=== PATIENT | female | born 1950 | race Hispanic/Latino ===

== ENCOUNTER → 2018-04-09 | Outpatient (CLI) | payer OTHER | END | disposition home or self-care (01) | LOC: RAH 06:58 | PROVIDERS: ATTEND Family Medicine | DX: M77.31 Calcaneal spur, right foot (principal); M25.461 Effusion, right knee | CPT/HCPCS: 73721 ==

== ENCOUNTER 2019-01-07 09:29 | Day surgery (SDC) | payer OTHER ==
[~2019-01-07] VITALS: Ht 157.5 cm; Wt 56.2 kg
[~2019-01-07 09:29] MED LIST: AEC81 PO; ALEN70TA10 PO; ATOR40TA71 PO; CHOL500050 PO; IBUP-2070 PO; ICOS1CAP PO; METF-444 PO; RAMI5CAP66 PO; SITA100T12 PO; SODIUM CHLORIDE 0.9% 1000ML 1,000 ML IV ONE
[2019-01-07 10:16] VITALS: BP 161/80
[2019-01-07] MEDS ORDERED: PROPOFOL 10 MG/ML 20ML VIAL IV ONE (11:04)
[2019-01-07 11:25] VITALS: BP 130/66
[2019-01-07 11:31] VITALS: BP 142/71
[2019-01-07 11:35] VITALS: BP 150/68
[2019-01-07 11:40] VITALS: BP_SYST 76
[2019-01-07 11:50] VITALS: BP 147/75
== END 2019-01-07 12:05 | disposition home or self-care (01) ==
LOC: DAH 09:29 → SUH 09:29
PROVIDERS: ATTEND Internal Medicine Gastroenterology
DX: R10.13 Epigastric pain (principal); K29.40 Chronic atrophic gastritis without bleeding; I10 Essential (primary) hypertension; E11.9 Type 2 diabetes mellitus without complications; M81.0 Age-related osteoporosis without current pathological fracture; K59.00 Constipation, unspecified; E78.5 Hyperlipidemia, unspecified; Z90.49 Acquired absence of other specified parts of digestive tract; Z90.710 Acquired absence of both cervix and uterus; Z90.89 Acquired absence of other organs; Z79.84 Long term (current) use of oral hypoglycemic drugs; Z79.899 Other long term (current) drug therapy; Z80.0 Family history of malignant neoplasm of digestive organs; Z88.8 Allergy status to other drugs, medicaments and biological substances
CPT/HCPCS: 43239; 82948 ×2; 88305; A4215; A4221; A4222; A4223; A4606; A4615; A4663; J2704; J7030